=== PATIENT | female | born 1980 | race Caucasian/White ===

== ENCOUNTER 2020-10-10 21:53 | Emergency (ER) | payer OTHER ==
[~2020-10-10] VITALS: Ht 165.1 cm; Wt 63.5 kg
== END 2020-10-11 01:46 | disposition home or self-care (01) ==
LOC: ER 21:53
DX: F45.41 Pain disorder exclusively related to psychological factors (principal); F22 Delusional disorders; F41.9 Anxiety disorder, unspecified; F31.9 Bipolar disorder, unspecified; F17.200 Nicotine dependence, unspecified, uncomplicated; Z88.5 Allergy status to narcotic agent
CPT/HCPCS: 73060; 73090; 73130; 84703; 99283-25; A9270